=== PATIENT | female | born 1965 | race Caucasian/White ===

== ENCOUNTER 2019-03-02 06:10 | Inpatient (IN) | payer OTHER ==
[~2019-03-02] VITALS: Ht 165.1 cm; Wt 73.9 kg
[2019-03-02] MEDS ORDERED: CEFAZOLIN SOD 2 GM in D5W 50 ML IV ONE (07:00)
[2019-03-02] MEDS ORDERED: ONDANSETRON HCL 4 MG/2 ML VIAL IVP ONE (08:10)
[2019-03-02] MEDS ORDERED: NS IRRIG SOLN 1000 ML IR ONE (08:10)
[2019-03-02] MEDS ORDERED: ROCURONIUM BROMIDE 10 MG/ML (ZEMURON) IV ONE (08:10)
[2019-03-02] MEDS ORDERED: SEVOFLURANE 15 MIN GAS INH ONE (08:10)
[2019-03-02] MEDS ORDERED: ROPIVACAINE HCL/PF 5 MG/ML 0.5% 30 ML VIAL INJ ONE (08:10)
[2019-03-02] MEDS ORDERED: FUROSEMIDE 20 MG/2 ML VIAL IVP ONE (08:10)
[2019-03-02] MEDS ORDERED: PROPOFOL 200MG/ 20ML VIAL (DIPRIVAN) IV ONE (08:10)
[2019-03-02] MEDS ORDERED: BUPIVACAINE /PF 0.25% 30 ML VIAL INJ ONE (08:10)
[2019-03-02] MEDS ORDERED: ROPIVACAINE HCL/PF 0.2% EPIDURAL 200 ML PLAST..BAG EP ONE (08:10)
[2019-03-02] MEDS ORDERED: GLYCOPYRROLATE 0.2 MG/ML VIAL IJ ONE (08:10)
[2019-03-02] MEDS ORDERED: fentaNYL CITRATE 250 MCG/5 ML AMP IV ONE (08:10)
[2019-03-02] MEDS ORDERED: WATER FOR IRRIGATION,STERILE 1,000 ML IRRIG.SOLN IR ONE (08:10)
[2019-03-02] MEDS ORDERED: MIDAZOLAM HCL 5 MG/5 ML VIAL IVP ONE (08:10)
[2019-03-02] MEDS ORDERED: LR 1,000 ML IV.SOLN IV ONE (08:10)
[2019-03-02] MEDS ORDERED: NEOSTIGMINE METHYLSULFATE 1 MG/ML, 10 ML VIAL IVP ONE (08:10)
[2019-03-02] MEDS ORDERED: DEXTROSE 50% JECT 50 ML DISP.SYRIN IVP ONE (08:10)
[2019-03-02] MEDS ORDERED: LR 1,000 ML IV SCH (08:56)
[2019-03-02] MEDS ORDERED: METOCLOPRAMIDE HCL 10 MG/2 ML VIAL IVP PRN (09:00)
[2019-03-02] MEDS ORDERED: HYDROmorphone 2 MG/ML VIAL IVP PRN (09:00)
[2019-03-02] MEDS ORDERED: HYDROmorphone 1 MG INJ. 1 MG/ML AMPUL IVP PRN ×2 (09:00)
[2019-03-02] MEDS ORDERED: OXYCODONE/ACETAMINOPHEN 5-325 TABLET PO PRN (11:45)
[2019-03-02] MEDS ORDERED: HYDROcodone/ACETAMIN 5-325 MG TAB (NORCO/ VICODIN) PO PRN (11:45)
[2019-03-02] MEDS ORDERED: METOCLOPRAMIDE HCL 10 MG/2 ML VIAL ONE (12:39)
[2019-03-02] MEDS: ONDANSETRON HCL 4 MG/2 ML VIAL IVP PRN ×2 (13:50→22:13)
[2019-03-02] MEDS ORDERED: CEFAZOLIN 1 GM IVPB PREMIX 50 ML IV ONE (14:00)
[2019-03-02] MEDS ORDERED: ONDANSETRON HCL 4 MG/2 ML VIAL ONE (14:02)
[2019-03-02] MEDS ORDERED: PROCHLORPERAZINE EDISYLATE 10 MG/2 ML VIAL IM ONE ×3 (15:15→15:30)
[2019-03-02] MEDS ORDERED: KETOROLAC TROMETHAMINE 30 MG VIAL IM ONE (15:15)
[2019-03-02] MEDS ORDERED: KETOROLAC TROMETHAMINE 30 MG VIAL ONE (15:21)
[2019-03-02 17:07] VITALS: BP_SYST 132
[2019-03-02 18:30] VITALS: BP_SYST 117
[2019-03-02 20:00] VITALS: BP_SYST 115
[2019-03-02] MEDS: OXYCODONE/ACETAMINOPHEN 5-325 TABLET PO PRN (22:13)
[2019-03-03] MEDS: OXYCODONE/ACETAMINOPHEN 5-325 TABLET PO PRN (02:44)
[2019-03-03] MEDS: ONDANSETRON HCL 4 MG/2 ML VIAL IVP PRN (02:44)
[2019-03-03] MEDS ORDERED: MEPERIDINE HCL/PF 100 MG/ML AMP ONE ×2 (11:26→17:54)
[2019-03-04] MEDS ORDERED: MEPERIDINE HCL/PF 100 MG/ML AMP ONE ×2 (09:05→17:42)
[2019-03-05] MEDS ORDERED: PROCHLORPERAZINE EDISYLATE 10 MG/2 ML VIAL IM PRN (08:15)
[2019-03-05] MEDS ORDERED: MEPERIDINE HCL/PF 100 MG/ML AMP IM PRN (08:15)
[2019-03-05] MEDS ORDERED: CEFAZOLIN 1 GM IVPB PREMIX 50 ML IV SCH (08:30)
[2019-03-05] MEDS ORDERED: D5LR 1,000 ML IV SCH (08:30)
== END 2019-03-04 18:00 | disposition home or self-care (01) | DRG 743 ==
LOC: SDS 06:10 → SMU 06:10 → SDS 17:13 → SMU 17:14 → SDS 03-04 18:00 → SMU 03-04 18:38 → SDS 03-08 13:57
PROVIDERS: ADMIT Specialist; ATTEND Specialist
PROC: 0UT9FZZ Resection of Uterus, Via Natural or Artificial Opening With Percutaneous Endoscopic Assistance (ICD-10-PCS; principal; 2019-03-03)
PROC: 0UT7FZZ Resection of Bilateral Fallopian Tubes, Via Natural or Artificial Opening With Percutaneous Endoscopic Assistance (ICD-10-PCS; 2019-03-03)
PROC: 0UN54ZZ Release Right Fallopian Tube, Percutaneous Endoscopic Approach (ICD-10-PCS; 2019-03-03)
PROC: 0DNU4ZZ Release Omentum, Percutaneous Endoscopic Approach (ICD-10-PCS; 2019-03-03)
PROC: 0DNW4ZZ Release Peritoneum, Percutaneous Endoscopic Approach (ICD-10-PCS; 2019-03-03)
PROC: 0DNE4ZZ Release Large Intestine, Percutaneous Endoscopic Approach (ICD-10-PCS; 2019-03-03)
PROC: 0DN84ZZ Release Small Intestine, Percutaneous Endoscopic Approach (ICD-10-PCS; 2019-03-03)
PROC: 0UN94ZZ Release Uterus, Percutaneous Endoscopic Approach (ICD-10-PCS; 2019-03-03)
PROC: 8E0W4CZ Robotic Assisted Procedure of Trunk Region, Percutaneous Endoscopic Approach (ICD-10-PCS; 2019-03-03)
DX: D25.1 Intramural leiomyoma of uterus (principal); D25.0 Submucous leiomyoma of uterus; N92.0 Excessive and frequent menstruation with regular cycle; N80.1 Endometriosis of ovary; D25.2 Subserosal leiomyoma of uterus; N73.6 Female pelvic peritoneal adhesions (postinfective); N93.8 Other specified abnormal uterine and vaginal bleeding; N70.11 Chronic salpingitis; N89.5 Stricture and atresia of vagina; Z88.8 Allergy status to other drugs, medicaments and biological substances; Z79.899 Other long term (current) drug therapy
CPT/HCPCS: J0690; J0780; J1885; J2405; J2765; J7060; J7120; 88307; C1727; E0190; J1940; J2175; J2250; J2704; J2710; J3010; J3490

== ENCOUNTER 2019-03-13 17:57 | Inpatient (IN) | payer OTHER ==
[~2019-03-13] VITALS: Ht 165.1 cm; Wt 73.9 kg
[2019-03-13 18:13] VITALS: BP_SYST 126
[2019-03-13] MEDS ORDERED: METOCLOPRAMIDE HCL 10 MG/2 ML VIAL IVP ONE (18:30)
[2019-03-13] MEDS ORDERED: fentaNYL CITRATE/PF 100 MCG/2 ML AMP IVP ONE ×3 (18:30→21:10)
[2019-03-13] MEDS ORDERED: NACL 0.9% 1,000 ML IV ONE (18:30)
[2019-03-13 19:11] LABS: BASOPHILS % (AUTO) 0.2 % (0.0-2.0); EOSINOPHILS # (AUTO) 0.1 K/uL (0.0-0.4); EOSINOPHILS % (AUTO) 0.4 % (0.0-4.0); HEMATOCRIT 37.6 % (36-48); HEMOGLOBIN 12.6 g/dL (12.0-16.0); LYMPHOCYTES # (AUTO) 1.3 K/uL (1.0-5.5); LYMPHOCYTES % (AUTO) 8.5 % (20.5-51.5); MEAN CORPUSCULAR HEMOGLOBIN 29 pg (27-31); MEAN CORPUSCULAR HGB CONC 34 % (32-36); MEAN CORPUSCULAR VOLUME 86 fL (79.0-98.0); MONOCYTES # (AUTO) 1.3 K/uL (0.0-1.0); MONOCYTES % (AUTO) 8.4 % (1.7-9.3); NEUTROPHILS # (AUTO) 12.9 K/uL (1.8-7.7); NEUTROPHILS % (AUTO) 82.5 % (40.0-70.0); PLATELET COUNT (AUTO) 498 K/uL (130-430); RED BLOOD CELL COUNT(AUTO) 4.35 MIL/uL (4.2-6.2); RED CELL DISTRIBUTION WIDTH 15.5 % (9.0-15.0); WHITE BLOOD COUNT (AUTO) 15.7 K/uL (4.8-10.8)
[2019-03-13 19:19] LABS: CALCIUM 8.5 mg/dL (8.4-11.0); CREATININE 0.62 mg/dL (0.55-1.30); INR 1.1 (0.8-1.2); PROTHROMBIN TIME 11.5 SECS (9.5-12.5)
[2019-03-13 19:24] LABS: ALBUMIN 2.5 g/dL (3.4-4.8); TOTAL BILIRUBIN 0.8 mg/dL (0.0-1.0)
[2019-03-13 19:27] LABS: POTASSIUM 2.6 mmol/L (3.5-5.1)
[2019-03-13] MEDS ORDERED: CIPROFLOXACIN LACT 400 MG/D5W 200 ML IV ONE (19:30)
[2019-03-13] MEDS ORDERED: metroNIDAZOLE 500 mg/NS 100 ML IV ONE (19:30)
[2019-03-13] MEDS ORDERED: NACL 0.9% 2,000 ML IV ONE (19:45)
[2019-03-13] MEDS ORDERED: POTASSIUM CHLORIDE 40 MEQ in NS 250 ML IV ONE (19:45)
[2019-03-13] MEDS ORDERED: KCL 20 mEq in 100 mL (PREMIX) 200 ML IV ONE (19:56)
[2019-03-13] MEDS ORDERED: KETAMINE 30 MG/3 ML SYRINGE IVP ONE (20:15)
[2019-03-13] MEDS ORDERED: NS 1000 ML IV.SOLN IV ONE (21:10)
[2019-03-13] MEDS ORDERED: SEVOFLURANE 15 MIN GAS INH ONE (21:10)
[2019-03-13] MEDS ORDERED: ONDANSETRON HCL 4 MG/2 ML VIAL IVP ONE (21:10)
[2019-03-13] MEDS ORDERED: NS IRRIG SOLN 1000 ML IR ONE (21:10)
[2019-03-13] MEDS ORDERED: GLYCOPYRROLATE 0.2 MG/ML VIAL IJ ONE (21:10)
[2019-03-13] MEDS ORDERED: ROCURONIUM BROMIDE 10 MG/ML (ZEMURON) IV ONE (21:10)
[2019-03-13] MEDS ORDERED: MIDAZOLAM HCL 5 MG/5 ML VIAL IVP ONE (21:10)
[2019-03-13] MEDS ORDERED: NEOSTIGMINE METHYLSULFATE 1 MG/ML, 10 ML VIAL IVP ONE (21:10)
[2019-03-13] MEDS ORDERED: PROPOFOL 200MG/ 20ML VIAL (DIPRIVAN) IV ONE (21:10)
[2019-03-13] MEDS ORDERED: DIPHENHYDRAMINE INJ 50 MG/ML VIAL IVP PRN ×2 (22:00→22:15)
[2019-03-13] MEDS ORDERED: fentaNYL CITRATE/PF 100 MCG/2 ML AMP IVP PRN ×4 (22:00→22:16)
[2019-03-13] MEDS ORDERED: NALOXONE HCL 0.4 MG/ML AMP (NARCAN) IVP PRN ×2 (22:00→22:15)
[2019-03-13] MEDS ORDERED: ONDANSETRON HCL 4 MG/2 ML VIAL IVP PRN ×2 (22:00→22:15)
[2019-03-13] MEDS ORDERED: NALBUPHINE HCL 10 MG/ML AMP IVP PRN ×2 (22:00→22:15)
[2019-03-13] MEDS ORDERED: FENT2mCg/mL-ROPIVA0.2%/NS EPID 200 ML EP SCH (22:00)
[2019-03-13] MEDS ORDERED: fentaNYL CITRATE/PF 100 MCG/2 ML AMP ONE (22:16)
[2019-03-13] MEDS ORDERED: ROPIVACAINE HCL/PF 0.2% 200 ML ONE (22:22)
[2019-03-13] MEDS ORDERED: LEVOFLOXACIN 500 MG/D5W 100 ML IV ONE (23:45)
[2019-03-13] MEDS ORDERED: ZOLPIDEM TARTRATE 5 MG TABLET PO PRN (23:45)
[2019-03-14] VITALS (26 sets, daily range): BP systolic 80–166
[2019-03-14] MEDS ORDERED: ONDANSETRON HCL 4 MG/2 ML VIAL IVP PRN (01:00)
[2019-03-14] MEDS ORDERED: metroNIDAZOLE 500 mg/NS 100 ML IV ONE (01:08)
[2019-03-14] MEDS ORDERED: LEVOFLOXACIN 500 MG/D5W 100 ML IV ONE (01:08)
[2019-03-14] MEDS: ONDANSETRON HCL 4 MG/2 ML VIAL IVP PRN ×5 (01:22→19:52)
[2019-03-14] MEDS ORDERED: MEPERIDINE HCL/PF 25 MG/ML DISP.SYRIN IVP SCH ×2 (02:00→05:00)
[2019-03-14] MEDS: POTASSIUM CHLORIDE 10 MEQ in D5NS 1,000 ML IV SCH (02:02)
[2019-03-14] MEDS ORDERED: KCL 20 mEq in 100 mL (PREMIX) 100 ML IV ONE (02:04)
[2019-03-14] MEDS: metroNIDAZOLE 500 mg/NS 100 ML IV SCH ×4 (02:25→22:05)
[2019-03-14] MEDS ORDERED: MEPERIDINE HCL/PF 25 MG/ML DISP.SYRIN IVP ONE (03:15)
[2019-03-14] MEDS ORDERED: NS 250 ML IV SCH (05:00)
[2019-03-14] MEDS: NOREPINEPHRINE BITARTRATE 4 MG in D5W 246 ML IV PRN ×2 (05:16→19:53)
[2019-03-14] MEDS ORDERED: NOREPINEPHRINE 4 MG/4 ML VIAL IV ONE (05:19)
[2019-03-14 06:01] LABS: CREATININE 1.01 mg/dL (0.55-1.30); POTASSIUM 3.3 mmol/L (3.5-5.1)
[2019-03-14] MEDS: BISACODYL 10 MG/SUPPOSITORY RC SCH ×3 (06:01→22:05)
[2019-03-14 06:05] LABS: HEMOGLOBIN 11.8 g/dL (12.0-16.0); MEAN CORPUSCULAR HEMOGLOBIN 29 pg (27-31); MEAN CORPUSCULAR HGB CONC 33 % (32-36); MEAN CORPUSCULAR VOLUME 87 fL (79.0-98.0); PLATELET COUNT (AUTO) 425 K/uL (130-430); RED BLOOD CELL COUNT(AUTO) 4.12 MIL/uL (4.2-6.2); RED CELL DISTRIBUTION WIDTH 15.7 % (9.0-15.0); WHITE BLOOD COUNT (AUTO) 22.8 K/uL (4.8-10.8)
[2019-03-14 07:07] LABS: CALCIUM 6.9 mg/dL (8.4-11.0)
[2019-03-14] MEDS: fentaNYL CITRATE/PF 100 MCG/2 ML AMP IVP SCH (08:39)
[2019-03-14] MEDS ORDERED: metroNIDAZOLE 500 mg/NS 100 ML IV SCH (09:00)
[2019-03-14] MEDS ORDERED: LEVOFLOXACIN 500 MG/D5W 100 ML IV SCH (09:00)
[2019-03-14] MEDS ORDERED: NS 500 ML IV ONE (09:00)
[2019-03-14] MEDS ORDERED: POTASSIUM CHLORIDE 40 MEQ in NS 250 ML IV ONE (10:00)
[2019-03-14] MEDS ORDERED: FLU VACC QS2019-20 36MOS UP/PF 60 MCG/0.5 ML SYRINGE I.M. PRN (10:00)
[2019-03-14] MEDS ORDERED: ALBUMIN HUMAN 5% 250 ML IV ONE (10:15)
[2019-03-14] MEDS ORDERED: NS 250 ML IV ONE ×2 (10:30→17:45)
[2019-03-14] MEDS: PIPERACILLIN/TAZO 3.375/DEX-IS 50 ML IV SCH ×3 (11:38→17:08)
[2019-03-14 12:17] LABS: ATYPICAL LYMPHOCYTES % 0 % (0-0); BAND % (MANUAL) 49 % (0-6); LYMPHOCYTES % (MANUAL) 5 % (20-46); MONOCYTES % (MANUAL) 2 % (0-11)
[2019-03-14 12:18] LABS: BASOPHILS % (MANUAL) 0 % (0-2); EOSINOPHILS % (MANUAL) 0 % (0-7)
[2019-03-14] MEDS: MORPHINE 2 MG/ML INJ. SYRINGE IVP PRN (15:33)
[2019-03-14] MEDS: MORPHINE 4 MG/ML INJ. SYRINGE IVP PRN (19:51)
[2019-03-14] MEDS: FENT2mCg/mL-ROPIVA0.2%/NS EPID 200 ML EP SCH (21:49)
[2019-03-15] VITALS (24 sets, daily range): BP systolic 100–127
[2019-03-15] MEDS: PIPERACILLIN/TAZO 3.375/DEX-IS 50 ML IV SCH ×5 (00:06→23:40)
[2019-03-15] MEDS: MORPHINE 2 MG/ML INJ. SYRINGE IVP PRN ×2 (00:07→06:37)
[2019-03-15] MEDS: ONDANSETRON HCL 4 MG/2 ML VIAL IVP PRN ×4 (00:08→14:34)
[2019-03-15] MEDS: POTASSIUM CHLORIDE 10 MEQ in D5NS 1,000 ML IV SCH ×5 (01:49→23:03)
[2019-03-15 06:18] LABS: BASOPHILS % (AUTO) 0.2 % (0.0-2.0); EOSINOPHILS % (AUTO) 0.2 % (0.0-4.0); HEMATOCRIT 27.9 % (36-48); HEMOGLOBIN 9.3 g/dL (12.0-16.0); LYMPHOCYTES # (AUTO) 1.2 K/uL (1.0-5.5); LYMPHOCYTES % (AUTO) 5.7 % (20.5-51.5); MEAN CORPUSCULAR HEMOGLOBIN 29 pg (27-31); MEAN CORPUSCULAR HGB CONC 33 % (32-36); MEAN CORPUSCULAR VOLUME 88 fL (79.0-98.0); MONOCYTES # (AUTO) 1.3 K/uL (0.0-1.0); MONOCYTES % (AUTO) 5.9 % (1.7-9.3); NEUTROPHILS # (AUTO) 18.8 K/uL (1.8-7.7); PLATELET COUNT (AUTO) 213 K/uL (130-430); RED BLOOD CELL COUNT(AUTO) 3.18 MIL/uL (4.2-6.2); RED CELL DISTRIBUTION WIDTH 15.7 % (9.0-15.0); WHITE BLOOD COUNT (AUTO) 21.3 K/uL (4.8-10.8)
[2019-03-15] MEDS: metroNIDAZOLE 500 mg/NS 100 ML IV SCH ×3 (06:29→22:31)
[2019-03-15] MEDS: BISACODYL 10 MG/SUPPOSITORY RC SCH ×3 (06:30→22:00)
[2019-03-15 06:40] LABS: ALBUMIN 1.5 g/dL (3.4-4.8); CREATININE 0.87 mg/dL (0.55-1.30); POTASSIUM 3.5 mmol/L (3.5-5.1); TOTAL BILIRUBIN 0.3 mg/dL (0.0-1.0)
[2019-03-15 07:21] LABS: CALCIUM 6.5 mg/dL (8.4-11.0)
[2019-03-15] MEDS: MORPHINE 4 MG/ML INJ. SYRINGE IVP PRN ×2 (10:37→14:35)
[2019-03-15] MEDS ORDERED: *TPN PER PHARMACY XX PRN (15:00)
[2019-03-15] MEDS ORDERED: COMMUNICATION ORDER XX PRN (15:00)
[2019-03-15] MEDS ORDERED: DEXTROSE 50% JECT 50 ML DISP.SYRIN IVP PRN (15:00)
[2019-03-15] MEDS: KETOROLAC TROMETHAMINE 30 MG VIAL IVP PRN ×2 (17:13→23:44)
[2019-03-15] MEDS: FENT2mCg/mL-ROPIVA0.2%/NS EPID 200 ML EP SCH ×2 (17:33→20:08)
[2019-03-15] MEDS: VANCOMYCIN HCL 1,000 MG in NS 250 ML IV SCH (18:25)
[2019-03-16] VITALS (20 sets, daily range): BP systolic 107–146
[2019-03-16] MEDS: MORPHINE 2 MG/ML INJ. SYRINGE IVP PRN (02:53)
[2019-03-16] MEDS: ONDANSETRON HCL 4 MG/2 ML VIAL IVP PRN ×4 (03:01→21:03)
[2019-03-16] MEDS: BISACODYL 10 MG/SUPPOSITORY RC SCH ×3 (05:13→21:27)
[2019-03-16] MEDS: POTASSIUM CHLORIDE 10 MEQ in D5NS 1,000 ML IV SCH ×3 (05:13→20:18)
[2019-03-16] MEDS: PIPERACILLIN/TAZO 3.375/DEX-IS 50 ML IV SCH ×4 (05:13→23:47)
[2019-03-16 05:38] LABS: BASOPHILS % (AUTO) 0.2 % (0.0-2.0); EOSINOPHILS # (AUTO) 0.2 K/uL (0.0-0.4); EOSINOPHILS % (AUTO) 1.2 % (0.0-4.0); HEMATOCRIT 25.2 % (36-48); HEMOGLOBIN 8.3 g/dL (12.0-16.0); LYMPHOCYTES # (AUTO) 1.1 K/uL (1.0-5.5); LYMPHOCYTES % (AUTO) 6.4 % (20.5-51.5); MEAN CORPUSCULAR HEMOGLOBIN 29 pg (27-31); MEAN CORPUSCULAR HGB CONC 33 % (32-36); MEAN CORPUSCULAR VOLUME 87 fL (79.0-98.0); MONOCYTES # (AUTO) 0.7 K/uL (0.0-1.0); MONOCYTES % (AUTO) 4.3 % (1.7-9.3); NEUTROPHILS # (AUTO) 15.2 K/uL (1.8-7.7); NEUTROPHILS % (AUTO) 87.9 % (40.0-70.0); PLATELET COUNT (AUTO) 212 K/uL (130-430); RED BLOOD CELL COUNT(AUTO) 2.88 MIL/uL (4.2-6.2); RED CELL DISTRIBUTION WIDTH 15.7 % (9.0-15.0); WHITE BLOOD COUNT (AUTO) 17.3 K/uL (4.8-10.8)
[2019-03-16] MEDS: metroNIDAZOLE 500 mg/NS 100 ML IV SCH ×3 (05:57→21:27)
[2019-03-16] MEDS: KETOROLAC TROMETHAMINE 30 MG VIAL IVP PRN ×3 (05:58→22:20)
[2019-03-16 06:02] LABS: ALBUMIN 1.2 g/dL (3.4-4.8); CREATININE 0.64 mg/dL (0.55-1.30); PHOSPHORUS 1.6 mg/dL (2.7-4.5); POTASSIUM 3.1 mmol/L (3.5-5.1); TOTAL BILIRUBIN 0.3 mg/dL (0.0-1.0)
[2019-03-16 06:03] LABS: INR 1.2 (0.8-1.2); PROTHROMBIN TIME 12.3 SECS (9.5-12.5)
[2019-03-16 06:08] LABS: CALCIUM 6.6 mg/dL (8.4-11.0)
[2019-03-16] MEDS: VANCOMYCIN HCL 1,000 MG in NS 250 ML IV SCH (07:14)
[2019-03-16] MEDS ORDERED: FENT2mCg/mL-ROPIVA0.2%/NS EPID 200 ML EP ONE ×2 (08:27→20:21)
[2019-03-16] MEDS: MORPHINE 4 MG/ML INJ. SYRINGE IVP PRN ×3 (09:08→21:04)
[2019-03-16] MEDS: MICAFUNGIN SODIUM 100 MG in NS 100 ML IV SCH (11:48)
[2019-03-16] MEDS ORDERED: FLUCONAZOLE 200 mg/ NS 100 ML IV SCH (12:00)
[2019-03-16] MEDS: fentaNYL CITRATE/PF 100 MCG/2 ML AMP IVP SCH (20:12)
[2019-03-16] MEDS: FENT2mCg/mL-ROPIVA0.2%/NS EPID 200 ML EP SCH (20:13)
[2019-03-16] MEDS ORDERED: TPN PERIPHERAL IV SCH ×10 (21:00)
[2019-03-16] MEDS ORDERED: POTASSIUM ACETATE IV SCH ×10 (21:00)
[2019-03-16] MEDS ORDERED: SODIUM ACETATE IV SCH ×10 (21:00)
[2019-03-16] MEDS ORDERED: [UNRECOGNIZED DRUG - OTHER] IV SCH ×10 (21:00)
[2019-03-17] VITALS (7 sets, daily range): BP systolic 121–134
[2019-03-17] MEDS: ONDANSETRON HCL 4 MG/2 ML VIAL IVP PRN ×2 (04:14→22:51)
[2019-03-17] MEDS: MORPHINE 2 MG/ML INJ. SYRINGE IVP PRN ×5 (04:15→22:46)
[2019-03-17] MEDS: POTASSIUM CHLORIDE 10 MEQ in D5NS 1,000 ML IV SCH (04:52)
[2019-03-17] MEDS: BISACODYL 10 MG/SUPPOSITORY RC SCH ×3 (05:21→21:58)
[2019-03-17] MEDS: PIPERACILLIN/TAZO 3.375/DEX-IS 50 ML IV SCH ×3 (05:21→17:44)
[2019-03-17 05:57] LABS: ALBUMIN 1.3 g/dL (3.4-4.8); CREATININE 0.57 mg/dL (0.55-1.30); PHOSPHORUS 2.2 mg/dL (2.7-4.5); POTASSIUM 3.1 mmol/L (3.5-5.1); TOTAL BILIRUBIN 0.2 mg/dL (0.0-1.0)
[2019-03-17 06:13] LABS: CALCIUM 6.2 mg/dL (8.4-11.0)
[2019-03-17] MEDS: metroNIDAZOLE 500 mg/NS 100 ML IV SCH ×3 (06:17→23:34)
[2019-03-17] MEDS ORDERED: POTASSIUM CHLORIDE 40 MEQ in NS 250 ML IV SCH (07:06)
[2019-03-17] MEDS: KETOROLAC TROMETHAMINE 30 MG VIAL IVP PRN ×2 (07:09→18:06)
[2019-03-17] MEDS ORDERED: FENT2mCg/mL-ROPIVA0.2%/NS EPID 200 ML EP ONE (08:14)
[2019-03-17 08:21] LABS: HEMOGLOBIN 9.5 g/dL (12.0-16.0); PLATELET COUNT (AUTO) 235 K/uL (130-430)
[2019-03-17 08:26] LABS: HEMATOCRIT 28.9 % (36-48); MEAN CORPUSCULAR HEMOGLOBIN 29 pg (27-31); MEAN CORPUSCULAR HGB CONC 33 % (32-36); RED BLOOD CELL COUNT(AUTO) 3.27 MIL/uL (4.2-6.2); RED CELL DISTRIBUTION WIDTH 15.4 % (9.0-15.0); WHITE BLOOD COUNT (AUTO) 15.3 K/uL (4.8-10.8)
[2019-03-17 08:33] LABS: MEAN CORPUSCULAR VOLUME 88 fL (79.0-98.0)
[2019-03-17 08:56] LABS: BAND % (MANUAL) 0 % (0-6); BASOPHILS % (MANUAL) 0 % (0-2); EOSINOPHILS % (MANUAL) 3 % (0-7); LYMPHOCYTES % (MANUAL) 6 % (20-46); MONOCYTES % (MANUAL) 5 % (0-11)
[2019-03-17] MEDS: MICAFUNGIN SODIUM 100 MG in NS 100 ML IV SCH (12:16)
[2019-03-17] MEDS ORDERED: ENOXAPARIN SODIUM 40 MG/0.4 ML SYRINGE SUBCUT ONE (17:00)
[2019-03-17] MEDS ORDERED: CALCIUM GLUCONATE 1 GM in NS 100 ML IV ONE (17:00)
[2019-03-17] MEDS: 0.45% NACL 1,000 ML IV SCH (17:57)
[2019-03-17] MEDS ORDERED: [UNRECOGNIZED DRUG - OTHER] IV SCH ×10 (21:00)
[2019-03-17] MEDS ORDERED: SODIUM ACETATE IV SCH ×10 (21:00)
[2019-03-17] MEDS ORDERED: TPN PERIPHERAL IV SCH ×10 (21:00)
[2019-03-17] MEDS ORDERED: POTASSIUM CHLORIDE IV SCH ×10 (21:00)
[2019-03-17] MEDS: INSULIN REGULAR, HUMAN 100 UNITS/ML, 10 ML VIAL (humuLIN R) SUBCUT PRN (23:45)
[2019-03-18] MEDS: PIPERACILLIN/TAZO 3.375/DEX-IS 50 ML IV SCH ×4 (00:42→17:49)
[2019-03-18] MEDS: KETOROLAC TROMETHAMINE 30 MG VIAL IVP PRN ×2 (00:43→17:58)
[2019-03-18] MEDS: ONDANSETRON HCL 4 MG/2 ML VIAL IVP PRN (05:47)
[2019-03-18] MEDS: MORPHINE 2 MG/ML INJ. SYRINGE IVP PRN ×2 (05:47→12:18)
[2019-03-18] MEDS: metroNIDAZOLE 500 mg/NS 100 ML IV SCH ×2 (05:49→14:43)
[2019-03-18] MEDS: BISACODYL 10 MG/SUPPOSITORY RC SCH ×3 (05:56→22:04)
[2019-03-18 06:40] LABS: BASOPHILS # (AUTO) 0.1 K/uL (0.0-0.2); BASOPHILS % (AUTO) 0.9 % (0.0-2.0); EOSINOPHILS # (AUTO) 0.6 K/uL (0.0-0.4); EOSINOPHILS % (AUTO) 5.2 % (0.0-4.0); HEMATOCRIT 27.7 % (36-48); HEMOGLOBIN 9.4 g/dL (12.0-16.0); LYMPHOCYTES # (AUTO) 1.2 K/uL (1.0-5.5); LYMPHOCYTES % (AUTO) 10.2 % (20.5-51.5); MEAN CORPUSCULAR HEMOGLOBIN 30 pg (27-31); MEAN CORPUSCULAR HGB CONC 34 % (32-36); MEAN CORPUSCULAR VOLUME 87 fL (79.0-98.0); MONOCYTES # (AUTO) 0.8 K/uL (0.0-1.0); MONOCYTES % (AUTO) 6.7 % (1.7-9.3); NEUTROPHILS # (AUTO) 8.8 K/uL (1.8-7.7); PLATELET COUNT (AUTO) 251 K/uL (130-430); RED BLOOD CELL COUNT(AUTO) 3.17 MIL/uL (4.2-6.2); WHITE BLOOD COUNT (AUTO) 11.4 K/uL (4.8-10.8)
[2019-03-18 06:46] LABS: CREATININE 0.4 mg/dL (0.55-1.30); PHOSPHORUS 2.4 mg/dL (2.7-4.5); POTASSIUM 3.3 mmol/L (3.5-5.1)
[2019-03-18 07:42] LABS: CALCIUM 6.5 mg/dL (8.4-11.0)
[2019-03-18 07:52] VITALS: BP_SYST 124
[2019-03-18] MEDS: ENOXAPARIN SODIUM 40 MG/0.4 ML SYRINGE SUBCUT SCH (08:39)
[2019-03-18] MEDS: PANTOPRAZOLE SODIUM 40 MG/VIAL (PROTONIX) IVP SCH ×2 (09:34→21:46)
[2019-03-18] MEDS: MICAFUNGIN SODIUM 100 MG in NS 100 ML IV SCH (11:13)
[2019-03-18 12:56] VITALS: BP_SYST 136
[2019-03-18] MEDS ORDERED: CALCIUM GLUCONATE 1 GM in NS 100 ML IV ONE (15:00)
[2019-03-18] MEDS ORDERED: K PHOS 15 MM in NS 250 ML IV ONE (15:00)
[2019-03-18 18:20] VITALS: BP_SYST 131
[2019-03-18 20:00] VITALS: BP_SYST 132
[2019-03-18] MEDS ORDERED: [UNRECOGNIZED DRUG - OTHER] IV SCH ×11 (21:00)
[2019-03-18] MEDS ORDERED: POTASSIUM CHLORIDE IV SCH ×11 (21:00)
[2019-03-18] MEDS ORDERED: SODIUM ACETATE IV SCH ×11 (21:00)
[2019-03-18] MEDS ORDERED: TPN PERIPHERAL IV SCH ×11 (21:00)
[2019-03-18] MEDS: FAT EMULSIONS 250 ML IV SCH (21:46)
[2019-03-18] MEDS: 0.45% NACL 1,000 ML IV SCH (22:10)
[2019-03-19] VITALS: BP_SYST 134
[2019-03-19] MEDS: PIPERACILLIN/TAZO 3.375/DEX-IS 50 ML IV SCH ×5 (00:19→23:49)
[2019-03-19] MEDS: KETOROLAC TROMETHAMINE 30 MG VIAL IVP PRN ×2 (00:19→09:08)
[2019-03-19] MEDS: INSULIN REGULAR, HUMAN 100 UNITS/ML, 10 ML VIAL (humuLIN R) SUBCUT PRN ×2 (00:27→05:13)
[2019-03-19] MEDS: BISACODYL 10 MG/SUPPOSITORY RC SCH ×3 (05:11→21:20)
[2019-03-19 07:16] LABS: CALCIUM 7.4 mg/dL (8.4-11.0); CREATININE 0.48 mg/dL (0.55-1.30); PHOSPHORUS 2.8 mg/dL (2.7-4.5)
[2019-03-19 07:24] LABS: POTASSIUM 2.9 mmol/L (3.5-5.1)
[2019-03-19 08:00] VITALS: BP_SYST 126
[2019-03-19] MEDS ORDERED: KCL 40 mEq in 100 mL (PREMIX) 100 ML IV ONE (08:15)
[2019-03-19] MEDS: 0.45% NACL 1,000 ML IV SCH (09:00)
[2019-03-19] MEDS: PANTOPRAZOLE SODIUM 40 MG/VIAL (PROTONIX) IVP SCH ×2 (09:07→20:55)
[2019-03-19] MEDS: ENOXAPARIN SODIUM 40 MG/0.4 ML SYRINGE SUBCUT SCH (09:09)
[2019-03-19 12:46] VITALS: BP_SYST 134
[2019-03-19] MEDS: MICAFUNGIN SODIUM 100 MG in NS 100 ML IV SCH (14:05)
[2019-03-19 17:02] VITALS: BP_SYST 138
[2019-03-19] MEDS: FAT EMULSIONS 250 ML IV SCH (20:54)
[2019-03-19] MEDS ORDERED: [UNRECOGNIZED DRUG - OTHER] IV SCH ×11 (21:00)
[2019-03-19] MEDS ORDERED: SODIUM ACETATE IV SCH ×11 (21:00)
[2019-03-19] MEDS ORDERED: POTASSIUM CHLORIDE IV SCH ×11 (21:00)
[2019-03-19] MEDS ORDERED: TPN PERIPHERAL IV SCH ×11 (21:00)
[2019-03-20 00:49] VITALS: BP_SYST 127
[2019-03-20] MEDS: 0.45% NACL 1,000 ML IV SCH ×2 (04:18→23:54)
[2019-03-20] MEDS: BISACODYL 10 MG/SUPPOSITORY RC SCH ×3 (06:00→21:19)
[2019-03-20] MEDS: PIPERACILLIN/TAZO 3.375/DEX-IS 50 ML IV SCH ×2 (06:25→11:30)
[2019-03-20 07:31] LABS: BASOPHILS % (AUTO) 0.5 % (0.0-2.0); EOSINOPHILS # (AUTO) 0.2 K/uL (0.0-0.4); EOSINOPHILS % (AUTO) 2.8 % (0.0-4.0); HEMATOCRIT 25.9 % (36-48); HEMOGLOBIN 8.8 g/dL (12.0-16.0); LYMPHOCYTES # (AUTO) 1.3 K/uL (1.0-5.5); LYMPHOCYTES % (AUTO) 16.2 % (20.5-51.5); MEAN CORPUSCULAR HEMOGLOBIN 29 pg (27-31); MEAN CORPUSCULAR HGB CONC 34 % (32-36); MEAN CORPUSCULAR VOLUME 86 fL (79.0-98.0); MONOCYTES # (AUTO) 0.9 K/uL (0.0-1.0); MONOCYTES % (AUTO) 10.8 % (1.7-9.3); NEUTROPHILS # (AUTO) 5.5 K/uL (1.8-7.7); NEUTROPHILS % (AUTO) 69.7 % (40.0-70.0); PLATELET COUNT (AUTO) 353 K/uL (130-430); RED BLOOD CELL COUNT(AUTO) 3.02 MIL/uL (4.2-6.2); RED CELL DISTRIBUTION WIDTH 15.8 % (9.0-15.0); WHITE BLOOD COUNT (AUTO) 7.9 K/uL (4.8-10.8)
[2019-03-20 08:14] LABS: ALBUMIN 1.2 g/dL (3.4-4.8); CALCIUM 7.5 mg/dL (8.4-11.0); CREATININE 0.54 mg/dL (0.55-1.30); POTASSIUM 3.3 mmol/L (3.5-5.1); TOTAL BILIRUBIN 0.3 mg/dL (0.0-1.0)
[2019-03-20 08:26] VITALS: BP_SYST 127
[2019-03-20] MEDS: PANTOPRAZOLE SODIUM 40 MG/VIAL (PROTONIX) IVP SCH ×2 (09:06→21:17)
[2019-03-20] MEDS: ENOXAPARIN SODIUM 40 MG/0.4 ML SYRINGE SUBCUT SCH (09:06)
[2019-03-20] MEDS: KETOROLAC TROMETHAMINE 30 MG VIAL IVP PRN (11:30)
[2019-03-20 12:24] VITALS: BP_SYST 134
[2019-03-20] MEDS: MICAFUNGIN SODIUM 100 MG in NS 100 ML IV SCH (12:25)
[2019-03-20] MEDS: cefTRIAXone 2 GM IVPB PREMIX 50 ML IV SCH (13:57)
[2019-03-20] MEDS: metroNIDAZOLE 500 mg/NS 100 ML IV SCH ×2 (13:58→21:18)
[2019-03-20 16:38] VITALS: BP_SYST 128
[2019-03-20 20:15] VITALS: BP_SYST 156
[2019-03-20] MEDS ORDERED: SODIUM ACETATE IV SCH ×11 (21:00)
[2019-03-20] MEDS ORDERED: [UNRECOGNIZED DRUG - OTHER] IV SCH ×11 (21:00)
[2019-03-20] MEDS ORDERED: POTASSIUM CHLORIDE IV SCH ×11 (21:00)
[2019-03-20] MEDS ORDERED: TPN PERIPHERAL IV SCH ×11 (21:00)
[2019-03-20] MEDS: FAT EMULSIONS 250 ML IV SCH (21:17)
[2019-03-21 00:33] VITALS: BP_SYST 153
[2019-03-21] MEDS: BISACODYL 10 MG/SUPPOSITORY RC SCH ×3 (06:00→21:12)
[2019-03-21 06:20] LABS: ALBUMIN 1.3 g/dL (3.4-4.8); CREATININE 0.55 mg/dL (0.55-1.30); PHOSPHORUS 2.7 mg/dL (2.7-4.5); POTASSIUM 3.1 mmol/L (3.5-5.1); TOTAL BILIRUBIN 0.1 mg/dL (0.0-1.0)
[2019-03-21] MEDS: metroNIDAZOLE 500 mg/NS 100 ML IV SCH ×3 (06:30→21:00)
[2019-03-21 06:45] LABS: CALCIUM 6.9 mg/dL (8.4-11.0)
[2019-03-21 06:49] LABS: BASOPHILS % (AUTO) 0.4 % (0.0-2.0); EOSINOPHILS # (AUTO) 0.1 K/uL (0.0-0.4); HEMATOCRIT 25.2 % (36-48); HEMOGLOBIN 8.5 g/dL (12.0-16.0); LYMPHOCYTES # (AUTO) 1.2 K/uL (1.0-5.5); LYMPHOCYTES % (AUTO) 16.2 % (20.5-51.5); MEAN CORPUSCULAR HEMOGLOBIN 29 pg (27-31); MEAN CORPUSCULAR HGB CONC 34 % (32-36); MEAN CORPUSCULAR VOLUME 86 fL (79.0-98.0); MONOCYTES # (AUTO) 0.8 K/uL (0.0-1.0); MONOCYTES % (AUTO) 10.8 % (1.7-9.3); NEUTROPHILS # (AUTO) 5.2 K/uL (1.8-7.7); NEUTROPHILS % (AUTO) 71.6 % (40.0-70.0); PLATELET COUNT (AUTO) 356 K/uL (130-430); RED BLOOD CELL COUNT(AUTO) 2.93 MIL/uL (4.2-6.2); RED CELL DISTRIBUTION WIDTH 15.8 % (9.0-15.0); WHITE BLOOD COUNT (AUTO) 7.3 K/uL (4.8-10.8)
[2019-03-21 08:02] VITALS: BP_SYST 134
[2019-03-21] MEDS: PANTOPRAZOLE SODIUM 40 MG/VIAL (PROTONIX) IVP SCH ×2 (08:49→21:00)
[2019-03-21] MEDS: ENOXAPARIN SODIUM 40 MG/0.4 ML SYRINGE SUBCUT SCH (08:51)
[2019-03-21] MEDS: cefTRIAXone 2 GM IVPB PREMIX 50 ML IV SCH (12:21)
[2019-03-21 12:46] VITALS: BP_SYST 129
[2019-03-21] MEDS: IBUPROFEN 600 MG TABLET PO PRN (14:15)
[2019-03-21 16:20] VITALS: BP_SYST 136
[2019-03-21] MEDS ORDERED: ACETAMINOPHEN 325 MG TABLET PO PRN (19:45)
[2019-03-21 20:00] VITALS: BP_SYST 126
[2019-03-21] MEDS: FAT EMULSIONS 250 ML IV SCH (20:58)
[2019-03-21] MEDS ORDERED: SODIUM ACETATE IV SCH ×11 (21:00)
[2019-03-21] MEDS ORDERED: POTASSIUM ACETATE IV SCH ×11 (21:00)
[2019-03-21] MEDS ORDERED: [UNRECOGNIZED DRUG - OTHER] IV SCH ×11 (21:00)
[2019-03-21] MEDS ORDERED: TPN PERIPHERAL IV SCH ×11 (21:00)
[2019-03-21] MEDS: 0.45% NACL 1,000 ML IV SCH (21:11)
[2019-03-22 00:30] VITALS: BP_SYST 129
[2019-03-22] MEDS: BISACODYL 10 MG/SUPPOSITORY RC SCH ×2 (05:09→14:00)
[2019-03-22] MEDS: metroNIDAZOLE 500 mg/NS 100 ML IV SCH ×2 (05:09→13:59)
[2019-03-22 06:51] LABS: CALCIUM 7.1 mg/dL (8.4-11.0); CREATININE 0.54 mg/dL (0.55-1.30)
[2019-03-22 07:55] VITALS: BP_SYST 127
[2019-03-22] MEDS ORDERED: POTASSIUM CHLORIDE 20 MEQ TAB.PRT.SR PO ONE ×2 (10:00→13:15)
[2019-03-22] MEDS ORDERED: SOD FERRIC GLUC COMPLEX/SUC 125 MG in NS 100 ML IV SCH (10:00)
[2019-03-22] MEDS: PANTOPRAZOLE SODIUM 40 MG/VIAL (PROTONIX) IVP SCH (10:04)
[2019-03-22] MEDS: ENOXAPARIN SODIUM 40 MG/0.4 ML SYRINGE SUBCUT SCH (10:05)
[2019-03-22] MEDS: IBUPROFEN 600 MG TABLET PO PRN (10:42)
[2019-03-22] MEDS: cefTRIAXone 2 GM IVPB PREMIX 50 ML IV SCH (12:18)
[2019-03-22 12:56] VITALS: BP_SYST 124
[2019-03-22 17:58] VITALS: BP_SYST 119
[2019-03-22] MEDS ORDERED: DIPHENOXYLATE HCL/ATROP SULF 2.5 MG TAB PO ONE (19:15)
[2019-03-22 19:22] VITALS: BP_SYST 123
[2019-03-22 20:00] VITALS: BP_SYST 123
[2019-03-22] MEDS ORDERED: POTA10TA11 PO (20:13)
[2019-03-22] MEDS ORDERED: POTA20TA83 PO (20:14)
[2019-03-22] MEDS ORDERED: LOM2.5 PO (20:15)
[2019-03-22] MEDS ORDERED: SODIUM ACETATE IV SCH ×11 (21:00)
[2019-03-22] MEDS ORDERED: POTASSIUM ACETATE IV SCH ×11 (21:00)
[2019-03-22] MEDS ORDERED: [UNRECOGNIZED DRUG - OTHER] IV SCH ×11 (21:00)
[2019-03-22] MEDS ORDERED: TPN PERIPHERAL IV SCH ×11 (21:00)
[2019-03-22] MEDS ORDERED: POTASSIUM CHLORIDE 20 MEQ TAB.PRT.SR PO SCH (21:00)
== END 2019-03-22 20:51 | disposition home or self-care (01) | DRG 853 ==
LOC: SED 17:57 → SIC 23:37 → STU 03-16 19:00 → SMU 03-21 23:45
PROVIDERS: ADMIT Specialist; ATTEND Specialist
PROC: 0DB80ZZ Excision of Small Intestine, Open Approach (ICD-10-PCS; 2019-03-13)
PROC: 0D980ZZ Drainage of Small Intestine, Open Approach (ICD-10-PCS; 2019-03-13)
PROC: 0DTJ0ZZ Resection of Appendix, Open Approach (ICD-10-PCS; principal; 2019-03-13 21:00)
DX: A41.50 Gram-negative sepsis, unspecified (principal); K63.1 Perforation of intestine (nontraumatic); R65.21 Severe sepsis with septic shock; K65.1 Peritoneal abscess; K65.9 Peritonitis, unspecified; T81.83XA Persistent postprocedural fistula, initial encounter; K56.609 Unspecified intestinal obstruction, unspecified as to partial versus complete obstruction; K56.7 Ileus, unspecified; J98.11 Atelectasis; N82.8 Other female genital tract fistulae; D64.9 Anemia, unspecified; Y83.8 Other surgical procedures as the cause of abnormal reaction of the patient, or of later complication, without mention of misadventure at the time of the procedure; B96.20 Unspecified Escherichia coli [E. coli] as the cause of diseases classified elsewhere; E88.09 Other disorders of plasma-protein metabolism, not elsewhere classified; E87.6 Hypokalemia; Z90.710 Acquired absence of both cervix and uterus; Z88.2 Allergy status to sulfonamides; Z90.79 Acquired absence of other genital organ(s); Z90.722 Acquired absence of ovaries, bilateral; Y92.89 Other specified places as the place of occurrence of the external cause
CPT/HCPCS: 36415; 71045; 74018; 80048; 80053; 82040-TC; 82962; 83605; 83735-TC; 84100-TC; 84478-TC; 85007; 85025; 85027; 85610-TC; 85730-TC; 87040-TC; 87070; 87070-TC; 87075-TC; 87081; 87186-TC; 87230-TC; 88304; 88305; 88307; 93005; 94010; 96365; 96366; 96367; 96375; 96376; 97110-GP; 97116-GP; 97163; 97530-GP; 99291; C1751; C9113; G0378; J0610; J0696; J0744; J1450; J1650; J1815; J1885; J1956; J2175; J2248; J2250; J2270; J2405; J2543; J2704; J2710; J2765; J2916; J3010; J3370; J3475; J3480; J3490; J7030; J7040; J7042; J7050; J7060; P9041

== ENCOUNTER 2019-11-24 05:55 | Day surgery (SDC) | payer OTHER, SELFPAY ==
[~2019-11-24] VITALS: Ht 160 cm; Wt 66.2 kg
[~2019-11-24 05:55] MED LIST: LOM2.5 PO; POTA20TA83 PO
[2019-11-24] MEDS ORDERED: ROCURONIUM BROMIDE 10 MG/ML (ZEMURON) IV ONE (07:35)
[2019-11-24] MEDS ORDERED: LEVOFLOXACIN 500 MG/D5W 100 ML PIGGYBACK IV ONE (07:35)
[2019-11-24] MEDS ORDERED: BUPIVACAINE /EPINEPHRINE/PF 0.5% 30 ML VIAL INJ ONE (07:35)
[2019-11-24] MEDS ORDERED: LIDOCAINE/EPI 1% 1:100000 20 ML VIAL INJ ONE (07:35)
[2019-11-24] MEDS ORDERED: NS IRRIG SOLN 1000 ML IR ONE (07:35)
[2019-11-24] MEDS ORDERED: SEVOFLURANE 15 MIN GAS INH ONE (07:35)
[2019-11-24] MEDS ORDERED: fentaNYL CITRATE 250 MCG/5 ML AMP IV ONE (07:35)
[2019-11-24] MEDS ORDERED: PROPOFOL 200MG/ 20ML VIAL (DIPRIVAN) IV ONE (07:35)
[2019-11-24] MEDS ORDERED: PHENYLEPHRINE HCL 10 MG/ML VIAL (NEOSYNEPHRINE) IV ONE (07:35)
[2019-11-24] MEDS ORDERED: NS 1000 ML IV.SOLN IV ONE (07:35)
[2019-11-24] MEDS ORDERED: ONDANSETRON HCL 4 MG/2 ML VIAL IVP ONE (07:35)
[2019-11-24] MEDS ORDERED: GLYCOPYRROLATE 0.2 MG/ML VIAL IJ ONE (07:35)
[2019-11-24] MEDS ORDERED: HYDROmorphone 1 MG INJ. 1 MG/ML AMPUL IVP PRN ×2 (08:15→10:00)
[2019-11-24] MEDS ORDERED: HYDROcodone/ACETAMIN 7.5-325 MG TAB PO ONE (08:15)
[2019-11-24] MEDS ORDERED: METOCLOPRAMIDE HCL 10 MG/2 ML VIAL IVP PRN (08:15)
[2019-11-24] MEDS ORDERED: HYDROcodone/ACETAMIN 5-325 MG TAB (NORCO/ VICODIN) PO PRN (10:00)
[2019-11-24] MEDS ORDERED: ACETAMINOPHEN 325 MG TABLET PO PRN (10:00)
[2019-11-24] MEDS ORDERED: HYDROmorphone 1 MG INJ. 1 MG/ML AMPUL ONE (10:37)
[2019-11-24] MEDS ORDERED: METOCLOPRAMIDE HCL 10 MG/2 ML VIAL ONE (10:39)
[2019-11-24] MEDS: NACL 0.9% 1,000 ML IV SCH ×3 (11:10→23:02)
[2019-11-24 11:27] VITALS: BP_SYST 121
--- NOTE | 2019-11-24 11:30 | NUR ---
Admission Note Report received from STAFF NUCLEAR WEAPONS OFFICER. Patient moved from PACU to bed 110A. A/Ox4 but is drowsy. Denies abdominal pain at this time. Peripheral IV, 20 g to left hand, infusing 0.9% NaCl at 100 ml/hr. Abdominal binder to abdomen, SHERLYN drain attached with <5 ml serosanguinous fluid in canister. No drainage or fluid noted along abdominal binder. Indwelling flores in place and draining urine at this time. SCDs in place. NAD at this time. Bed in low and locked position, side rails up x 3, call light within reach.
[2019-11-24 12:00] VITALS: BP_SYST 110
[2019-11-24] MEDS: CEFAZOLIN 1 GM IVPB PREMIX 50 ML IV SCH ×2 (13:09→22:49)
--- NOTE | 2019-11-24 13:30 | NUR ---
Nausea/Vomiting + 1 episode of emesis, yellow liquid color. Patient vomited on her gown. New gown given, along with Zofran 4 mg IV push.
[2019-11-24] MEDS: ONDANSETRON HCL 4 MG/2 ML VIAL IVP PRN ×2 (13:33→22:49)
[2019-11-24 16:18] VITALS: BP_SYST 118
[2019-11-24 16:40] VITALS: BP_SYST 113
--- NOTE | 2019-11-24 18:00 | NUR ---
Nausea Patient reports multiple episodes of dry heaving and sharp, intermittent lower abdominal pain. Primary RN repositioned patient and instructed patient to perform deep breathing techniques.
--- NOTE | 2019-11-24 18:52 | NUR ---
Closing Note Patient in bed, NAD. Fitch catheter inplace. SHERLYN drain in place. Patient's abdominal binder on. Patient encouraged to eat clear liquids but is having hard time due to abdominal cramping. Patient encouraged to ingest food slowly. Bed in low and locked position, side rails up x3, call light within reach. Will endorse care to NOC RN.
--- NOTE | 2019-11-24 19:20 | NUR ---
OPENING NOTES Patient is resting, no signs of shortness of breath, IV site patent, dressings c/d/i, IVF running. Abdominal binder in place, SHERLYN drain in place. Call light within reach, bed alarm on, bed at lowest position. Will continue to monitor.
[2019-11-24 20:00] VITALS: BP_SYST 142
--- NOTE | 2019-11-24 22:05 | NUR ---
SPOKE TO DR. MILLER, RECEIVED ORDERS FOR DILAUDID AND TORADOL FOR BREAKTHROUGH PAIN, PT EVAL.
[2019-11-24] MEDS ORDERED: HALOPERIDOL LACTATE 5 MG/ML VIAL IM ONE (22:15)
[2019-11-24] MEDS: HYDROmorphone 1 MG INJ. 1 MG/ML AMPUL IVP PRN (22:49)
[2019-11-25] MEDS: HYDROmorphone 1 MG INJ. 1 MG/ML AMPUL IVP PRN ×8 (01:32→22:35)
[2019-11-25 01:33] VITALS: BP_SYST 137
[2019-11-25] MEDS: NACL 0.9% 1,000 ML IV SCH (05:46)
--- NOTE | 2019-11-25 06:25 | NUR ---
DR. MILLER AT BEDSIDE WITH PATIENT.
--- NOTE | 2019-11-25 06:25 | NUR ---
CLOSING NOTES Patient is resting, IV site patent, dressings c/d/i, IVF running. Fitch to be discontinued, abdominal binder in place, SHERLYN drain emptied, 25 ml throughout the shift, call light within reach, bed alarm on, bed at lowest position. All needs met throughout shift. Will endorse care to oncoming shift.
--- NOTE | 2019-11-25 06:46 | NUR ---
CONSULTATION PAGED/CALLED Reason for Consultation: POST OP LYSIS OF ADHESIONS Person Who was Notified: SPOKE WITH ARACELI FROM EXCHANGE Consulting Physician: Car Deliverer Specialty: GI Ordering Physician:
--- NOTE | 2019-11-25 07:02 | NUR ---
Nutrition Update Esequiel scale 17 noted. Pt admitted for unspecified abdominal pain Diet: Clear Liquid Diet BMI: 25.9 kg/m2 RD to follow per nutrition care standards.
[2019-11-25 07:21] LABS: BASOPHILS % (AUTO) 0.4 % (0.0-2.0); EOSINOPHILS % (AUTO) 0.5 % (0.0-4.0); HEMOGLOBIN 12.8 g/dL (12.0-16.0); LYMPHOCYTES # (AUTO) 1.2 K/uL (1.0-5.5); LYMPHOCYTES % (AUTO) 13.8 % (20.5-51.5); MEAN CORPUSCULAR HEMOGLOBIN 31 pg (27-31); MEAN CORPUSCULAR HGB CONC 35 % (32-36); MEAN CORPUSCULAR VOLUME 91 fL (79.0-98.0); MONOCYTES # (AUTO) 0.7 K/uL (0.0-1.0); MONOCYTES % (AUTO) 7.9 % (1.7-9.3); NEUTROPHILS # (AUTO) 6.9 K/uL (1.8-7.7); NEUTROPHILS % (AUTO) 77.4 % (40.0-70.0); PLATELET COUNT (AUTO) 151 K/uL (130-430); RED BLOOD CELL COUNT(AUTO) 4.08 MIL/uL (4.2-6.2); RED CELL DISTRIBUTION WIDTH 13.5 % (9.0-15.0); WHITE BLOOD COUNT (AUTO) 8.9 K/uL (4.8-10.8)
[2019-11-25 07:49] LABS: ALBUMIN 2.4 g/dL (3.4-4.8); CALCIUM 7.4 mg/dL (8.4-11.0); CREATININE 0.72 mg/dL (0.55-1.30); TOTAL BILIRUBIN 0.9 mg/dL (0.0-1.0)
[2019-11-25 08:00] VITALS: BP_SYST 113
[2019-11-25] MEDS: ONDANSETRON HCL 4 MG/2 ML VIAL IVP PRN ×3 (08:31→20:22)
[2019-11-25 08:39] LABS: POTASSIUM 2.9 mmol/L (3.5-5.1)
--- NOTE | 2019-11-25 09:40 | NUR ---
received a critical value for K+, 2.9, Nurse in charge of this patient made aware
[2019-11-25 12:00] VITALS: BP_SYST 122
[2019-11-25] MEDS: KCL 30mEq in D5/0.45NS 1000 mL 1,000 ML IV SCH (14:01)
[2019-11-25 16:00] VITALS: BP_SYST 131
--- NOTE | 2019-11-25 16:18 | NUR ---
CONSULTATION PAGED/CALLED Reason for Consultation: MEDICAL MANAGEMENT Person Who was Notified: SPOKE WITH STANFORD FROM OFFICE Consulting Physician: Multi Punch Operator Specialty: INTERNAL MED Ordering Physician:
--- NOTE | 2019-11-25 16:30 | NUR ---
CONSULTATION PAGED/CALLED Reason for Consultation: MEDICAL MANAGEMENT Person Who was Notified: SPOKE WITH ARACELI FROM EXCHANGE Consulting Physician: Body Trimmer Upholsterer Specialty: INTERNAL MED Ordering Physician:
--- NOTE | 2019-11-25 18:46 | NUR ---
Patient is in bed resting. Patient denies pain, distress, and shortness of breath. Patient given pain medications every 2 hours for pain in abdomen. SHERLYN drain draining bloody drainage. PT evaluation completed. Bed in low position. Call light in reach. Will give report to night nurse.
[2019-11-25 20:00] VITALS: BP_SYST 146
--- NOTE | 2019-11-25 20:00 | NUR ---
OPENING NOTE RECEIVED PATIENT AOX4, COMPLAINING OF 10/10 ABDOMINAL PAIN, WILL MEDICATE WITH PAIN MEDICATION ORDERED. RESPIRATIONS EVEN AND UNLABORED ON ROOM AIR. PERKINS CATHETER IN PLACE DRAINING TO GRAVITY. SHERLYN DRAIN IN PLACE WITH SANGUINOUS DRAINAGE. IVF RUNNING AND TOLERATING TO IV SITE WITH NO SIGNS OF INFILTRATION OR PAIN NOTED. PATIENT TOLERATING CLEAR LIQUIDS WITH NO COMPLAINTS OF NAUSEA OR VOMITING. WILL CONTINUE TO MONITOR.
--- NOTE | 2019-11-25 22:30 | NUR ---
PAIN MEDICATION PATIENT REQUESTING PAIN MEDICATION FOR 10/10 ABDOMINAL PAIN, ENCOURAGE PATIENT TO TAKE TORADOL ORDERED, PATIENT REFUSED DESPITE EDUCATION ON RISKS AND BENEFITS OF CONTINUING DILAUDID FOR PAIN. ADMINISTERED DILAUDID REQUESTED BY PATIENT. ENCOURAGED USED OF INCENTIVE SPIROMETER. ABDOMINAL BINDER REMAINS IN PLACE, CLEAN, DRY, WITH SHERLYN DRAIN CONTINUING TO DRAIN SANGUINOUS DRAINAGE.
--- NOTE | 2019-11-25 23:00 | NUR ---
ADVANCED DIET PATIENT REQUESTING CRACKERS AT THIS TIME, OK TO GIVE PER CHARGE NURSE. PATIENT TOLERATED ONE PACK OF SALTINE AND ONE PACK OF GONZALES CRACKERS WITH NO COMPLAINTS OF DISCOMFORT OR NAUSEA. WILL CONTINUE TO MONITOR.
--- NOTE | 2019-11-26 01:00 | NUR ---
PAIN MEDICATION PATIENT REQUESTING DILAUDID FOR ABDOMINAL PAIN 01/06. EDUCATED PATIENT ON RISKS AND BENEFITS OF CONTINUING DILAUDID, ENCOURAGED TORADOL, PATIENT REFUSED AT THIS TIME HOWEVER, AGREES TO TAKE TORADOL NEXT TIME SHE NEEDS PAIN MEDICATION. MEDICATED PATIENT FOR PAIN.
[2019-11-26] MEDS: KCL 30mEq in D5/0.45NS 1000 mL 1,000 ML IV SCH ×2 (01:14→09:00)
[2019-11-26] MEDS: HYDROmorphone 1 MG INJ. 1 MG/ML AMPUL IVP PRN (01:15)
[2019-11-26] MEDS: ONDANSETRON HCL 4 MG/2 ML VIAL IVP PRN ×2 (01:21→06:44)
[2019-11-26 04:00] VITALS: BP_SYST 137
--- NOTE | 2019-11-26 04:00 | NUR ---
PAIN MEDICATION PATIENT COMPLAINS OF 12/07 ABDOMINAL PAIN, PATIENT AGREED TO HAVE TORADOL. ADMINISTERED TORADOL ORDERED. PATIENT TOLERATED WELL.
[2019-11-26] MEDS: KETOROLAC TROMETHAMINE 30 MG VIAL IVP PRN ×2 (04:09→10:18)
--- NOTE | 2019-11-26 06:30 | NUR ---
RN ROUNDS PATIENT AWAKE IN BED RESTRING QUIETLY. PATIENT STATES TORADOL SUFFICIENTLY HELPED RELIEVE HER PAIN. SHERLYN DRAIN OUTPUT 20 ML OF SEROUSANGUINOUS FLUID. PERKINS CATHETER REMOVED INTACT, PATIENT TOLERATED WITH NO COMPLAINTS NOTED. ABDOMINAL BINDER REMAINS CLEAN AND IN PLACE. PATIENT STATES SHE SOMETIMES FEELS DIZZY WHEN SITTING UP. EDUCATED TO CHANGE POSITIONS SLOWLY AND CALL FOR ASSISTANCE BEFORE GETTING OUT OF BED. IV SITE REMAINS PATENT AND INTACT WITH NO SIGNS OF INFILTRATION NOTED. ALL SAFETY PRECAUTIONS REMAIN IN PLACE. BED LOCKED IN LOWEST POSITION, CALL LIGHT WITHIN REACH. PATIENT STABLE. ALL CARE NEEDS MET THROUGHOUT SHIFT.
[2019-11-26 08:33] VITALS: BP_SYST 120
--- NOTE | 2019-11-26 10:20 | NUR ---
DR SUERO HERE AND SEEN PT, NEW ORDERS GIVEN. Addendum: 11/26/19 at 1034 by Rogers Marino RN PT GIVEN PAIN MEDICATION
[2019-11-26 10:49] LABS: BASOPHILS % (AUTO) 0.4 % (0.0-2.0); EOSINOPHILS # (AUTO) 0.2 K/uL (0.0-0.4); EOSINOPHILS % (AUTO) 1.8 % (0.0-4.0); HEMATOCRIT 38.8 % (36-48); HEMOGLOBIN 13.2 g/dL (12.0-16.0); LYMPHOCYTES # (AUTO) 1.2 K/uL (1.0-5.5); LYMPHOCYTES % (AUTO) 10.6 % (20.5-51.5); MEAN CORPUSCULAR HEMOGLOBIN 31 pg (27-31); MEAN CORPUSCULAR HGB CONC 34 % (32-36); MEAN CORPUSCULAR VOLUME 91 fL (79.0-98.0); MONOCYTES # (AUTO) 0.9 K/uL (0.0-1.0); MONOCYTES % (AUTO) 7.7 % (1.7-9.3); NEUTROPHILS # (AUTO) 8.9 K/uL (1.8-7.7); NEUTROPHILS % (AUTO) 79.5 % (40.0-70.0); PLATELET COUNT (AUTO) 163 K/uL (130-430); RED BLOOD CELL COUNT(AUTO) 4.27 MIL/uL (4.2-6.2); RED CELL DISTRIBUTION WIDTH 13.1 % (9.0-15.0); WHITE BLOOD COUNT (AUTO) 11.2 K/uL (4.8-10.8)
[2019-11-26 10:53] LABS: CALCIUM 8.2 mg/dL (8.4-11.0); CREATININE 0.8 mg/dL (0.55-1.30); POTASSIUM 3.9 mmol/L (3.5-5.1)
[2019-11-26 10:59] LABS: ALBUMIN 2.2 g/dL (3.4-4.8); TOTAL BILIRUBIN 0.8 mg/dL (0.0-1.0)
[2019-11-26] MEDS ORDERED: HYDR-4272 PO (12:40)
[2019-11-26] MEDS ORDERED: IBUP-1971 PO (12:41)
[2019-11-26] MEDS ORDERED: DOCU-144 PO (12:42)
[2019-11-26 12:46] VITALS: BP_SYST 125
[2019-11-26 12:47] VITALS: BP_SYST 125
--- NOTE | 2019-11-26 13:37 | NUR ---
D/C Patient Patient given medication reconciliation form and D/C instructions. Exit Care provided. Patient verbalized understanding. MD discussed with patient the results and treatment provided. Ambulatory with steady gait for discharge to home. Patient in stable condition, ID band removed. IV catheter removed, intact and dressing applied, no active bleeding. Rx of NORCO, MOTRIN, COLACE given. Patient educated on pain management and effects and side effects of medications. All belongings sent with patient.
[2019-12-02] MEDS ORDERED: POLY17PO4 PO (10:50)
== END 2019-11-26 13:29 | disposition home or self-care (01) ==
LOC: SDS 05:55 → SMU 05:55 → SDS 11-26 13:29
PROVIDERS: ATTEND Surgery
DX: R10.30 Lower abdominal pain, unspecified (principal); K66.0 Peritoneal adhesions (postprocedural) (postinfection); M79.3 Panniculitis, unspecified; Z79.899 Other long term (current) drug therapy; G47.30 Sleep apnea, unspecified; G89.29 Other chronic pain; Z20.828 Contact with and (suspected) exposure to other viral communicable diseases
CPT/HCPCS: 15830; 36415; 49329; 80053; 85025; 87081; 88304; 97162; C1727; J0690; J1170 ×3; J1885 ×2; J1956; J2370; J2405 ×3; J2704; J2765; J3010; J3490 ×2; J7030 ×2; J7120; U0003